=== PATIENT | female | born 1960 | race Caucasian/White ===

== ENCOUNTER 2018-01-22 12:20 | Inpatient (IN) | payer BC ==
[2018-01-22] MEDS: ONDANSETRON 4 MG INJ IV ×3 (12:54→19:07)
[2018-01-22] MEDS: SOD CHLORIDE 0.9% 1,000 ML IV (12:55)
[2018-01-22 13:28] LABS: ADD MAN DIFF? NO
[2018-01-22 13:31] LABS: BASOPHILS % 0.3 % (0.0-2.0); EOSINOPHILS % 0.2 % (0.0-7.0); HEMATOCRIT 43.3 % (37.0-47.0); HEMOGLOBIN 14.7 g/dl (12.0-16.0); LYMPHOCYTES # 1.7 10^3/ul (0.8-2.9); LYMPHOCYTES % 27.8 % (15.0-51.0); MEAN CORPUSCULAR HEMOGLOBIN 28.5 pg (29.0-33.0); MEAN CORPUSCULAR HGB CONC 33.9 g/dl (32.0-37.0); MEAN CORPUSCULAR VOLUME 83.9 fl (82.0-101.0); MEAN PLATELET VOLUME 10.9 fl (7.4-10.4); MONOCYTE # 0.6 10^3/ul (0.3-0.9); MONOCYTES % 9.8 % (0.0-11.0); NEUTROPHIL # 3.8 10^3/ul (1.6-7.5); NEUTROPHILS % 61.6 % (39.0-77.0); PLATELET COUNT 263 10^3/UL (140-415); RED BLOOD COUNT 5.16 10^6/ul (4.20-5.40); RED CELL DISTRIBUTION WIDTH 12.2 % (11.5-14.5)
[2018-01-22 13:31] LABS: WHITE BLOOD COUNT 6.2 10^3/ul (4.8-10.8)
[2018-01-22 13:49] LABS: ADD UMIC YES; UR ASCORBIC ACID NEGATIVE (NEGATIVE); UR BACTERIA FEW /HPF (NONE SEEN); UR BILIRUBIN (Dip) NEGATIVE (NEGATIVE); UR BLOOD (Dip) NEGATIVE (NEGATIVE); UR CLARITY CLEAR (CLEAR); UR COLOR YELLOW (YELLOW); UR GLUCOSE (Dip) NEGATIVE (NEGATIVE); UR KETONES (Dip) TRACE mg/dL (NEGATIVE); UR LEUKOCYTE ESTERASE (Dip) TRACE Leu/ul (NEGATIVE); UR MUCUS FEW /HPF (NONE SEEN); UR NITRITE (Dip) NEGATIVE (NEGATIVE); UR RBC 1 /HPF (0-5); UR SQUAMOUS EPITHELIAL CELL FEW /HPF (FEW); UR TOTAL PROTEIN (Dip) NEGATIVE (NEGATIVE); UR UROBILINOGEN (Dip) NEGATIVE (NEGATIVE); UR WBC 3 /HPF (0-5)
[2018-01-22 13:50] LABS: INR 0.91; PROTIME 12.3 Sec (11.9-14.9)
[2018-01-22 13:51] LABS: PARTIAL THROMBOPLASTIN TIME 30.4 Sec (25.0-35.0)
[2018-01-22 13:56] LABS: ALANINE AMINOTRANSFERASE 39 IU/L (13-69); ALBUMIN 4.2 g/dl (3.3-4.9); ALBUMIN/GLOBULIN RATIO 1.35; ALKALINE PHOSPHATASE 72 IU/L (42-121); ANION GAP 13 (8-16); ASPARTATE AMINO TRANSFERASE 34 IU/L (15-46); BILIRUBIN,INDIRECT 0.3 mg/dl (0-1.1); BILIRUBIN,TOTAL 0.3 mg/dl (0.2-1.3); BLOOD UREA NITROGEN 7 mg/dl (7-20); CALCIUM 9.7 mg/dl (8.4-10.2); CARBON DIOXIDE 30 mmol/L (21-31); CHLORIDE 106 mmol/L (97-110); CREATININE 0.61 mg/dl (0.44-1.00); GLUCOSE 110 mg/dl (70-220); POTASSIUM 3.3 mmol/L (3.5-5.1); SODIUM 146 mmol/L (135-144); TOTAL PROTEIN 7.3 g/dl (6.1-8.1)
[2018-01-22 14:09] LABS: TROPONIN-I < 0.012 ng/ml (0.00-0.12)
[2018-01-22 14:12] LABS: FREE THYROXINE INDEX (Calc) 4.41 ug/ml (0.65-3.89); T3 UPTAKE 28.1 % (23.5-40.5); T4 (THYROXINE) 15.7 ug/dl (5.5-11.0)
[2018-01-22] MEDS: IOHEXOL 300MG/ML 150 ML BTL (14:19)
[2018-01-22] MEDS: SOD CHLORIDE 0.9% 100 ML (14:19)
[2018-01-22 14:56] LABS: PHOSPHORUS 2.7 mg/dl (2.5-4.9)
[2018-01-22 14:56] LABS: MAGNESIUM 1.9 mg/dl (1.7-2.5)
[2018-01-22] MEDS ORDERED: ACETAMINOPHEN 325 MG TAB PO (15:30)
[2018-01-22] MEDS ORDERED: NACL 0.9% 3 ML SYG IV (17:30)
[2018-01-22] MEDS ORDERED: ONDANSETRON 4 MG TAB PO (17:30)
[2018-01-22] MEDS: POTASSIUM CHLORIDE (SR) 20 MEQ TAB PO (18:58)
[2018-01-22] MEDS: LACTATED RINGER'S 1,000 ML IV (18:58)
[2018-01-22 20:05] LABS: INR 0.93; PROTIME 12.6 Sec (11.9-14.9)
[2018-01-22 20:06] LABS: PARTIAL THROMBOPLASTIN TIME 29.7 Sec (25.0-35.0)
[2018-01-22] MEDS: POTASSIUM CHLORIDE 20 MEQ in LACTATED RINGER'S 1,000 ML IV (20:15)
[2018-01-22] MEDS: HEPARIN 5,000 UNIT/0.5 ML VIAL SC (21:45)
[2018-01-23] MEDS: POTASSIUM CHLORIDE 20 MEQ in LACTATED RINGER'S 1,000 ML IV ×3 (05:36→15:42)
[2018-01-23] MEDS: PANTOPRAZOLE (EC) 40 MG TAB PO ×2 (06:00→19:59)
[2018-01-23 06:19] LABS: ADD MAN DIFF? NO
[2018-01-23] MEDS: HEPARIN 5,000 UNIT/0.5 ML VIAL SC ×3 (06:20→22:58)
[2018-01-23 06:29] LABS: BASOPHILS % 0.3 % (0.0-2.0); EOSINOPHILS % 0.4 % (0.0-7.0); HEMATOCRIT 35.7 % (37.0-47.0); LYMPHOCYTES # 2.2 10^3/ul (0.8-2.9); LYMPHOCYTES % 29.6 % (15.0-51.0); MEAN CORPUSCULAR HEMOGLOBIN 28.8 pg (29.0-33.0); MEAN CORPUSCULAR HGB CONC 33.6 g/dl (32.0-37.0); MEAN CORPUSCULAR VOLUME 85.8 fl (82.0-101.0); MEAN PLATELET VOLUME 10.9 fl (7.4-10.4); MONOCYTE # 0.8 10^3/ul (0.3-0.9); MONOCYTES % 11.6 % (0.0-11.0); NEUTROPHIL # 4.2 10^3/ul (1.6-7.5); NEUTROPHILS % 57.8 % (39.0-77.0); PLATELET COUNT 212 10^3/UL (140-415); RED BLOOD COUNT 4.16 10^6/ul (4.20-5.40); RED CELL DISTRIBUTION WIDTH 12.1 % (11.5-14.5)
[2018-01-23 06:29] LABS: WHITE BLOOD COUNT 7.3 10^3/ul (4.8-10.8)
[2018-01-23 07:04] LABS: ALANINE AMINOTRANSFERASE 35 IU/L (13-69); ALKALINE PHOSPHATASE 54 IU/L (42-121); ANION GAP 10 (8-16); ASPARTATE AMINO TRANSFERASE 22 IU/L (15-46); BILIRUBIN,INDIRECT 0.3 mg/dl (0-1.1); BILIRUBIN,TOTAL 0.3 mg/dl (0.2-1.3); BLOOD UREA NITROGEN 3 mg/dl (7-20); CALCIUM 8.9 mg/dl (8.4-10.2); CARBON DIOXIDE 28 mmol/L (21-31); CHLORIDE 111 mmol/L (97-110); GLUCOSE 90 mg/dl (70-220); MAGNESIUM 1.8 mg/dl (1.7-2.5); PHOSPHORUS 3.1 mg/dl (2.5-4.9); POTASSIUM 3.9 mmol/L (3.5-5.1); SODIUM 145 mmol/L (135-144); TOTAL PROTEIN 5.5 g/dl (6.1-8.1)
[2018-01-23] MEDS: ONDANSETRON 4 MG INJ IV ×2 (07:52→15:32)
[2018-01-23] MEDS: LACTULOSE 30ML CUP PO (11:43)
[2018-01-23] MEDS: NA PHOSPHATE/BIPHOS 133 ML ENEMA PR (11:44)
[2018-01-23] MEDS: MAGNESIUM CITRATE 300 ML BTL PO (16:54)
[2018-01-24] MEDS: POTASSIUM CHLORIDE 20 MEQ in LACTATED RINGER'S 1,000 ML IV ×2 (01:48→02:01)
[2018-01-24] MEDS: CEPASTAT LOZENGE MT ×2 (01:59→06:34)
[2018-01-24] MEDS: PANTOPRAZOLE (EC) 40 MG TAB PO (06:34)
[2018-01-24] MEDS: HEPARIN 5,000 UNIT/0.5 ML VIAL SC ×3 (06:35→21:45)
[2018-01-25] MEDS: HEPARIN 5,000 UNIT/0.5 ML VIAL SC ×2 (05:31→14:00)
[2018-01-25] MEDS: PANTOPRAZOLE (EC) 40 MG TAB PO (05:31)
[2018-01-25] MEDS ORDERED: LIDOCAINE 2% (SDV) 5 ML INJ (07:00)
[2018-01-25] MEDS ORDERED: CEFAZOLIN 1 GM INJ (07:00)
[2018-01-25] MEDS ORDERED: morphine 10 MG INJ (11:36)
[2018-01-25] MEDS ORDERED: LABETALOL HCL 20MG INJ (11:39)
[2018-01-25] MEDS: LIDOCAINE 1%/EPI 30 ML INJ (11:40)
[2018-01-25] MEDS ORDERED: PROPOFOL 20 ML (11:52)
[2018-01-25] MEDS ORDERED: ROCURONIUM 50 MG INJ (11:52)
[2018-01-25] MEDS ORDERED: ONDANSETRON 4 MG INJ (11:52)
[2018-01-25] MEDS ORDERED: DEXAMETHASONE 4 MG/ML 1 ML INJ (11:52)
[2018-01-25] MEDS ORDERED: SUGAMMADEX SODIUM 200 MG/2 ML VIAL IV (12:28)
[2018-01-25] MEDS ORDERED: HYDROmorphONE (0.2 MG/ML) 10ML SYG IV ×3 (13:00)
[2018-01-25] MEDS ORDERED: hydrALAzine 20 MG INJ IV (13:00)
[2018-01-25] MEDS ORDERED: OXYCODONE/ACETAMINOPHEN (5/325) TAB PO ×2 (13:00)
[2018-01-25] MEDS ORDERED: EPHEDrine SULFATE 50 MG/5 ML SYG IV (13:00)
[2018-01-25] MEDS ORDERED: ALBUTEROL 0.083% (NEB) 2.5 MG/3 ML AMP HHN (13:00)
[2018-01-25] MEDS ORDERED: KETOROLAC 30 MG INJ IV (13:00)
[2018-01-25] MEDS ORDERED: LABETALOL HCL 20MG INJ IV (13:00)
[2018-01-25] MEDS ORDERED: ACETAMINOPHEN 325 MG TAB PO (13:00)
[2018-01-25] MEDS ORDERED: METOCLOPRAMIDE 10 MG INJ IV (13:00)
[2018-01-25] MEDS ORDERED: FENTAnyl 50 MCG/ML VIAL IV ×2 (13:00)
[2018-01-25] MEDS ORDERED: MEPERIDINE 25 MG INJ IV (13:00)
[2018-01-25] MEDS ORDERED: MIDAZOLAM 1 MG/ML 2 ML INJ IV (13:00)
[2018-01-25] MEDS: FENTAnyl 50 MCG/ML VIAL IV (13:18)
[2018-01-25] MEDS: ONDANSETRON 4 MG INJ IV (13:19)
[2018-01-25] MEDS: DIPHENHYDRAMINE 50 MG INJ IV (13:27)
[2018-01-25] MEDS: LACTATED RINGER'S 1,000 ML IV ×2 (14:03→22:38)
[2018-01-25] MEDS ORDERED: DIPHENHYDRAMINE 50 MG INJ IV (14:30)
[2018-01-25] MEDS: CEFAZOLIN 2 GM/50 ML (PMX) 50 ML IVPB ×2 (14:36→21:48)
[2018-01-25] MEDS: HYDROCODONE/APAP (5/325) TAB PO (19:57)
[2018-01-26] MEDS: HYDROCODONE/APAP (5/325) TAB PO ×2 (01:32→18:11)
[2018-01-26] MEDS: LEVOTHYROXINE 100 MCG TAB PO (05:34)
[2018-01-26] MEDS: CEFAZOLIN 2 GM/50 ML (PMX) 50 ML IVPB (05:34)
[2018-01-26] MEDS: PANTOPRAZOLE (EC) 40 MG TAB PO (05:35)
[2018-01-26 06:10] LABS: ADD MAN DIFF? NO
[2018-01-26 06:13] LABS: BASOPHILS % 0.1 % (0.0-2.0); HEMATOCRIT 34.5 % (37.0-47.0); HEMOGLOBIN 11.7 g/dl (12.0-16.0); LYMPHOCYTES # 1.1 10^3/ul (0.8-2.9); LYMPHOCYTES % 7.1 % (15.0-51.0); MEAN CORPUSCULAR HEMOGLOBIN 28.8 pg (29.0-33.0); MEAN CORPUSCULAR HGB CONC 33.9 g/dl (32.0-37.0); MONOCYTES % 6.8 % (0.0-11.0); NEUTROPHIL # 12.8 10^3/ul (1.6-7.5); NEUTROPHILS % 85.5 % (39.0-77.0); PLATELET COUNT 270 10^3/UL (140-415); RED BLOOD COUNT 4.06 10^6/ul (4.20-5.40); RED CELL DISTRIBUTION WIDTH 12.3 % (11.5-14.5)
[2018-01-26 06:38] LABS: PHOSPHORUS 3.5 mg/dl (2.5-4.9); POTASSIUM 4.1 mmol/L (3.5-5.1)
[2018-01-26 06:38] LABS: ALANINE AMINOTRANSFERASE 28 IU/L (13-69); ALBUMIN 3.3 g/dl (3.3-4.9); ALBUMIN/GLOBULIN RATIO 1.17; ALKALINE PHOSPHATASE 67 IU/L (42-121); ANION GAP 15 (8-16); ASPARTATE AMINO TRANSFERASE 18 IU/L (15-46); BILIRUBIN,INDIRECT 0.2 mg/dl (0-1.1); BILIRUBIN,TOTAL 0.2 mg/dl (0.2-1.3); BLOOD UREA NITROGEN 6 mg/dl (7-20); CALCIUM 8.7 mg/dl (8.4-10.2); CARBON DIOXIDE 26 mmol/L (21-31); CHLORIDE 103 mmol/L (97-110); CREATININE 0.55 mg/dl (0.44-1.00); GLUCOSE 132 mg/dl (70-220); SODIUM 140 mmol/L (135-144); TOTAL PROTEIN 6.1 g/dl (6.1-8.1)
[2018-01-26 06:47] LABS: IONIZED CALCIUM 1.3 mmol/L (1.1-1.4)
[2018-01-26] MEDS: LACTATED RINGER'S 1,000 ML IV (08:38)
[2018-01-26] MEDS: HEPARIN 5,000 UNIT/0.5 ML VIAL SC ×2 (14:54→21:56)
[2018-01-27] MEDS: PANTOPRAZOLE (EC) 40 MG TAB PO (05:40)
[2018-01-27] MEDS: LEVOTHYROXINE 100 MCG TAB PO (05:40)
[2018-01-27] MEDS: HEPARIN 5,000 UNIT/0.5 ML VIAL SC (05:44)
[2018-01-27] MEDS: HYDROCODONE/APAP (5/325) TAB PO (05:46)
== END 2018-01-27 10:25 | disposition home or self-care (01) | DRG 626 ==
LOC: E/R 12:20 → MS2 15:10
PROC: 0GTH0ZZ Resection of Right Thyroid Gland Lobe, Open Approach (ICD-10-PCS; principal; 2018-01-25 11:22)
DX: C73 Malignant neoplasm of thyroid gland (principal); E87.0 Hyperosmolality and hypernatremia; E04.9 Nontoxic goiter, unspecified; E86.0 Dehydration; K21.9 Gastro-esophageal reflux disease without esophagitis; R10.13 Epigastric pain; K59.00 Constipation, unspecified
CPT/HCPCS: 36415; 70491; 71260; 74177; 80053; 81001; 82330; 83735; 84100; 84132; 84436; 84443; 84479; 84484; 85025; 85610; 85730; 87040; 87086; 93005; 96374; 96376; 99285-25